=== PATIENT | male | born 1975 | race Caucasian/White ===

== ENCOUNTER 2017-10-30 21:12 | Observation (INO) | payer OTHER ==
[~2017-10-30] VITALS: Ht 185.4 cm; Wt 99.8 kg
[~2017-10-30 21:12] MED LIST: ADDERALL XR 3030 MG PO; CARISOPRODOL 3350 MG PO; CIPROFLOXACIN500 M1 PO; FLAGYL500 MG PO; KEFLEX500 MG PO; XANAX1 MG PO
[2017-10-30 21:30] VITALS: BP 112/64
[2017-10-30 22:09] LABS: HEMATOCRIT 42.7 % (42.0-52.0); HEMOGLOBIN 14.5 gm/dL (14.0-18.0); MCH 32.2 pg (26.0-34.0); MCHC 34.1 g/dL (28.0-37.0); MCV 94.6 fL (80.0-100.0); MPV 7.6 fl. (7.2-11.1); NUCLEATED RBCS 0 /100WBC; PLATELET COUNT* 329 thou/uL (150-400); RBC 4.51 mil/uL (4.50-6.00); RDW-CV 12.7 % (10.5-14.5); WBC 11.6 thou/uL (4.0-11.0)
[2017-10-30 22:13] LABS: CALCIUM 8.8 mg/dL (8.5-10.1); POTASSIUM 3.6 mmol/L (3.5-5.1)
[2017-10-30 22:16] LABS: URINE BILIRUBIN NEGATIVE (Negative); URINE BLOOD NEGATIVE (Negative); URINE CLARITY CLEAR; URINE COLOR YELLOW; URINE GLUCOSE-RANDOM NEGATIVE (Negative); URINE KETONES NEGATIVE (Negative); URINE LEUKOCYTES-REFLEX NEGATIVE (Negative); URINE NITRITE-REFLEX NEGATIVE (Negative); URINE PROTEIN NEGATIVE (Negative); URINE UROBILINOGEN 0.2 E.U./dl (0.2-1.0)
[2017-10-30 22:18] LABS: ALBUMIN 3.7 g/dL (3.4-5.0); TOTAL BILIRUBIN 0.5 mg/dL (<0.1-1.0)
[2017-10-30 22:56] LABS: ABSOLUTE LYMPHOCYTES 4.2 thou/uL (0.8-5.3); ABSOLUTE MONOCYTES 1.2 thou/uL (0.0-1.2); ABSOLUTE NEUTROPHILS 5.9 thou/uL (1.6-8.1); LYMPHOCYTES 35.8 %
[2017-10-30 22:57] LABS: ABSOLUTE EOSINOPHILS 0.3 thou/uL (0.0-0.7); EOSINOPHILS 2.4 %
[2017-10-31] VITALS (7 sets, daily range): BP systolic 100–122; BP diastolic 54–89
[2017-10-31 05:06] LABS: HEMOGLOBIN 13.9 gm/dL (14.0-18.0); MCH 32.5 pg (26.0-34.0); MCHC 34.7 g/dL (28.0-37.0); MCV 93.6 fL (80.0-100.0); MPV 7.8 fl. (7.2-11.1); RBC 4.28 mil/uL (4.50-6.00); RDW-CV 12.8 % (10.5-14.5)
[2017-10-31 06:27] LABS: ALBUMIN 3.5 g/dL (3.4-5.0); CALCIUM 8.7 mg/dL (8.5-10.1); CREATININE 0.8 mg/dL (0.6-1.3); POTASSIUM 3.8 mmol/L (3.5-5.1); TOTAL BILIRUBIN 0.5 mg/dL (<0.1-1.0); TOTAL PROTEIN 6.4 g/dL (6.4-8.2)
--- NOTE | 2017-10-31 07:43 | NUR ---
PATIENT RESTED IN BED, NO ACUTE CHANGES. PAITNET DID NOT SHOW SIGNS OF DISTRESS. PATIENT TO RECIEVE SURGERY, PATIENT COMPLETED PRE OP ANTIBIOTICS. CONSENT SIGNED.
--- NOTE | 2017-10-31 12:03 | NUR ---
ASSUMED CARE OF PT AT 0730. PT IN SURGERY APPENDECTOMY AT THIS TIME. PT BACK FROM SURGERY AT APPROXIMATELY 1000. VSS. PT DENIES ANY PAIN AT THAT TIME TREATED IN PACU FOR PAIN. LAP APPY SITES TO ABDOMEN C/D/I. PT ON RA SAT UPPER 90'S. DENIES ANY SHORTNESS OF BREATH. A&0X4. MED SURG STATUS. PT UP AD BERNARD. AT BEDSIDE. AM ASSESSMENT CHARTED. MEDICATIONS PER MAR. PROBABLE DISCHARGE THIS AFTERNOON AFTER ADVANCING DIET TOLERATED, PAIN MGMT AND INCREASING ACTIVITY TOLERATED. PT REPOSITIONS SELF. HOURLY ROUNDING OBSERVED. BED IN LOW POSITION. CALL LIGHT WITHIN REACH. WILL CONTINUE PLAN OF CARE.
[2017-10-31] MEDS ORDERED: HYDROCODONE-AP1 EAC6 PO (14:19)
--- NOTE | 2017-10-31 18:42 | NUR ---
PT COMPLAINED OF CHEST PAIN THIS AFTERNOON, RIGHT UPPER CHEST. EKG OBTAINED TRACING SB. PARTIALLY RELIEVED WITH MORPHINE IVP. SURGERY NOTIFIED. ORDERS RECEIVED TO HOLD OFF ON DISCHARGE AT THIS TIME. PT STATES HE WOULD FEEL BETTER STAYING AT HOSPITAL OVER NIGHT WITH SUCH DISCOMFORT TO RIGHT CHEST AND THROAT. PT EDUCATED ON NEED FOR AMBULATION TO HELP REMOVE EXTRA GAS POST SURGERY. PT CONTINUES TO COMPLAIN OF ABDOMINAL PAIN AND CHEST PAIN-TREATED WITH PRN MORPHINE IVP. REFER TO EMAR. REMAINED AT BEDSIDE THROUGHOUT SHIFT. PT ON RA SAT UPPER 90'S. DENIES ANY SHORTNESS OF BREATH. PT UP AD BERNARD IN ROOM. MEDICATIONS PER MAR. PROBABLE DISCHARGE IN AM. PT REPOSITIONS SELF. HOURLY ROUNDING OBSERVED. BED IN LOW POSITION. CALL LIGHT WITHIN REACH. WILL CONTINUE PLAN OF CARE.
[2017-11-01] VITALS: BP 132/70
--- NOTE | 2017-11-01 00:06 | NUR ---
DOCTOR FAWN JUNIOR NOTIFIED OF PATIENT LAST BM, SEE ORDERS. DOCTOR NOTIFED OF PATIENT COMPLAINT OF CHEST PAIN, THAT DECREASED WITH NORCO, NO NEW ORDERS REGARDING TO CHEST PAIN.
--- NOTE | 2017-11-01 07:33 | NUR ---
PATIENT RESTED IN BED, NO ACUTE CHANGES. PATIENT DID NOT SHOW SIGNS OF DISTRESS.
[2017-11-01 08:00] VITALS: BP 145/89
--- NOTE | 2017-11-01 09:13 | OP ---
[address] [address] OPERATIVE REPORT Name: JOSIAS KELLEY Room: [address] IN M.R.#: [id number] Admission: 10/31/17 Attend Phys: Eloisa Mcmillan DO Discharge: Date of : 79 Report #: [id number] THIS REPORT FOR: //name// CC: Eloisa Obando MD DICTATED BY: Tom Meier DO DATE OF SERVICE: 10/31/2017 PREOPERATIVE DIAGNOSIS: Appendicitis. POSTOPERATIVE DIAGNOSIS: Appendicitis. SURGEON: Eloisa Mcmillan DO. HAND BUTTON SPLITTER: Tom Meier, PGY-2. OPERATION: Laparoscopic appendectomy. ANESTHESIA: General endotracheal and local. ESTIMATED BLOOD LOSS: 5 mL. SPECIMEN REMOVED: Appendix. COMPLICATIONS: None. DISPOSITION: PACU to floor with plan for discharge home later today. CONDITION: Stable. INDICATIONS: The patient is a 42-year-old male that presented to the Emergency Room with 1-2 days of cramping right lower quadrant pain, nausea and vomiting. He had been recently followed by his primary care physician for an elevated leukocytosis over the last 3-4 months and some associated fatigue. The patient overnight had worsening sharp right lower quadrant pain, which prompted his presentation to the Emergency Department. CT scan showed a dilated fluid filled and thickened appendix and a mild leukocytosis. He was consented for a laparoscopic with possible open appendectomy and brought to the operating room. DESCRIPTION OF PROCEDURE: After informed consent was obtained, with risks including but not limited to bleeding, infection and damage to surrounding structures, the patient was brought to the operating room and placed in a supine position. General anesthesia was administered, and he was intubated without [address] [address] OPERATIVE REPORT Name: ALLIEJOSIAS Martha Room: [address] IN [facility].#: [id number] Admission: 10/31/17 Attend Phys: Eloisa Mcmillan DO Discharge: Date of : 79 Report #: [id number] difficulty. The patient was then prepped and draped in the usual sterile fashion. SCDs were placed prior to induction of anesthesia. Patient was on perioperative antibiotics. A surgical pause was held to confirm proper patient and procedure. .5% marcaine was used to anesthetize the planned incision sites. A #11 blade was used to create a horizontal incision, with the infraumbilical skin elevated using a pair of Adson's. Dissection was carried down to the fascia using a Reba clamp. Fascia was identified and elevated with two Kochers and entered using electrocautery. The peritoneum was entered bluntly. A finger sweep was used to ensure no adhesions under our entry point. 0 Vicryl was then used to secure both sides of the fascia to the Sarina port, which was introduced under direct visualization. The abdomen was then insufflated. An additional 5 mm port was placed in the left lower quadrant and another placed in the suprapubic midline under direct visualization. A brief exploration of the abdomen was then undertaken. The patient was positioned left side down and head down to aid in identification of the appendix. Several loops of small bowel were brought out of the right lower quadrant, and the appendix was noted to be injected and inflamed with no surrounding purulent material. The tip of the appendix was adherent to the pericolic gutter and was elevated. Bovie electrocautery was used to take down the adhesions to free the tip of the appendix. A window was created at the base of the appendix using a [place] dissector. A 45 mm blue load stapler was then fired across the base of the appendix. An additional white load 45 mm staple was deployed across the mesoappendix. The appendix was then placed in an EndoCatch bag. The staple lines were inspected, and a small area at the inferior aspect of the mesoappendix was noted to be actively bleeding which was controlled with cautery. The suction nursing education specialist was used to irrigate and inspect for any further bleeding, which was not noted. The abdomen was briefly desufflated to see if the drop in pressure allowed for any increase in bleeding, which was not noted. All ports were removed under direct visualization without any bleeding noted. The appendix was removed through the umbilical port. The previous fascial stitches were elevated and replaced with Bang clamps. A single [id number] using 0 Vicryl on a UR-6 was used to close the fascia. All skin was closed using 4-0 Monocryl. Wounds were cleansed and dressed with Mastisol, Steri-Strips, 4 x 4's and Tegaderms. The patient was emerged from anesthesia and transferred to the PACU in stable condition. He tolerated the procedure well without complication. PRIMARY CARE PHYSICIAN: Krissy Obando MD. <ELECTRONICALLY SIGNED> By: Eloisa Mcmillan DO 11/01/17 0913 0853 [id number] Mcmillan DO /nt
--- NOTE | 2017-11-01 10:46 | NUR ---
ASSUMED PT CARE AT 0730, FULL ASSESMENT DONE CHARTED. PT A/O X4, C/O ABD PAIN AT 12/19. PT GIVEN MORPHINE, STATES ROSALIECO HAS BEEN MAKING HIM FEEL "SICK", OBTAINED ORDER FOR TRAMADOL. DISCHARGE ORDERS RECIEVED, PT STATES HIS CAN COME GET HIM THIS AFTERNOON. WILL CONTINUE TO MONITOR UNTIL DISCHARGE
[2017-11-01] MEDS ORDERED: ULTRAM 50MG TAB50 MG PO (12:32)
--- NOTE | 2017-11-01 14:35 | NUR ---
Nutrition: Pt seen for nursing risk 2 points. Admitted with appendicitis. He will go up to M/S today. He had untouched lunch tray in room at time of visit. He stated poor appetite R/T nausea 2/2 pain RX. He does not feel like he has lost any wt recently. Regular diet is ordered. He stated he is only drinking juice right now. Offered him Boost products, to whic he agreed to try Tabitha - RD ordered. Consider low risk. Hopeful for beeter po intake in a timely manner. GOALS: po intake increase to >75% of meals, Boost+ tabitha daily, no significant wt loss.
--- NOTE | 2017-11-01 15:59 | EKG ---
[place] [address] ELECTROCARDIOGRAM REPORT Name: JOSIAS KELLEY Room: [address] M.R.#: [id number] Admission: 10/31/17 Attend Phys: Elosia Mcmillan DO Discharge: Date of : 79 Report #: [id number] THIS REPORT FOR: //name// [facility] Test Date: 2017-10-31 Test Time: 16:40:20 Pat Name: JOSIAS KELLEY Department: Room: [address] Gender: M Continuity Person: LEONEL : 1975 Requested By: Eloisa Mcmillan Order Number: [id number] Reading MD: Ken Lim Measurements Intervals [place] Rate: 59 P: 39 NE: 167 QRS: 31 QRSD: 121 T: 36 QT: 423 QTc: 419 Interpretive Statements Sinus rhythm Nonspecific intraventricular conduction delay Compared to ECG 04/24/2017 16:10:43 Intraventricular conduction delay now present Incomplete right bundle-branch block no longer present Electronically Signed On 11-01-2017 15:59:12 CDT by Ken Lim [email or web address] <ELECTRONICALLY SIGNED> By: Ken Lim MD, FACC 11/01/17 1559 1640 1640 Ken Lim MD, [facility] /EPI
--- NOTE | 2017-11-01 18:30 | NUR ---
DISCHARGE ORDERS OBTAINED, REVIEWED WITH PT, HE VERBALIZED UNDERSTANDING. PT LEFT UNIT WITH AT APPROX 1815
== END 2017-11-01 18:32 | disposition home or self-care (01) ==
LOC: M.ERS 21:12 → M.2W 10-31 00:18 → M.TBA-ER 10-31 00:18 → M.2W 10-31 01:19
PROVIDERS: Emergency Medicine; ADMIT Surgery
DX: K35.80 Unspecified acute appendicitis (principal); R10.11 Right upper quadrant pain; D72.829 Elevated white blood cell count, unspecified; R11.2 Nausea with vomiting, unspecified; F90.9 Attention-deficit hyperactivity disorder, unspecified type; F41.9 Anxiety disorder, unspecified; F17.200 Nicotine dependence, unspecified, uncomplicated; Z98.890 Other specified postprocedural states

== ENCOUNTER → 2017-11-25 | Outpatient (CLI) | payer OTHER ==
[~2017-11-25] MED LIST changes: +HYDROCODONE-AP1 EAC6 PO; +ULTRAM 50MG TAB50 MG PO
[2017-11-25 15:49] LABS: HEMOGLOBIN 15.1 gm/dL (14.0-18.0); MCHC 34.4 g/dL (28.0-37.0); MCV 93.3 fL (80.0-100.0); MPV 7.5 fl. (7.2-11.1); RBC 4.71 mil/uL (4.50-6.00); RDW-CV 12.6 % (10.5-14.5); WBC 13.7 thou/uL (4.0-11.0)
[2017-11-25 16:02] LABS: ALBUMIN 4.3 g/dL (3.4-5.0); CALCIUM 9.1 mg/dL (8.5-10.1); POTASSIUM 3.7 mmol/L (3.5-5.1); TOTAL BILIRUBIN 0.4 mg/dL (<0.1-1.0); TOTAL PROTEIN 8.3 g/dL (6.4-8.2)
== END ==
LOC: M.CT 15:00 → M.LAB 15:23 → M.CT 15:23
PROVIDERS: Family Medicine
DX: N20.0 Calculus of kidney (principal); R50.82 Postprocedural fever; R10.31 Right lower quadrant pain; R11.0 Nausea

== ENCOUNTER → 2018-01-17 | Outpatient (CLI) | payer OTHER | LOC: M.NUC 11:37 | DX: K31.84 Gastroparesis (principal) ==

== ENCOUNTER → 2018-02-17 | Outpatient (CLI) | payer OTHER ==
[2018-02-17 19:13] LABS: T7 1.8 (1.2-4.9)
== END ==
LOC: M.LAB 10:41
PROVIDERS: Nurse Practitioner Adult Health
DX: K59.00 Constipation, unspecified (principal); R14.0 Abdominal distension (gaseous)

== ENCOUNTER → 2019-04-05 | Outpatient (CLI) | payer OTHER ==
[2019-04-05 12:28] LABS: ABSOLUTE BASOPHILS 0.1 thou/uL (0.0-0.2); ABSOLUTE EOSINOPHILS 0.1 thou/uL (0.0-0.7); ABSOLUTE MONOCYTES 1.2 thou/uL (0.0-1.2); ABSOLUTE NEUTROPHILS 13.6 thou/uL (1.6-8.1); BASOPHILS 0.7 %; EOSINOPHILS 0.4 %; HEMATOCRIT 50.8 % (42.0-52.0); HEMOGLOBIN 17.6 gm/dL (14.0-18.0); LYMPHOCYTES 16.6 %; MCH 32.6 pg (26.0-34.0); MCHC 34.7 g/dL (28.0-37.0); MONOCYTES 6.4 %; MPV 7.1 fl. (7.2-11.1); NUCLEATED RBCS 0 /100WBC; PLATELET COUNT* 451 thou/uL (150-400); POLYS 75.9 %; RDW-CV 12.6 % (10.5-14.5); WBC 17.9 thou/uL (4.0-11.0)
[2019-04-05 12:42] LABS: ALBUMIN 4.5 g/dL (3.4-5.0); CALCIUM 9.6 mg/dL (8.5-10.1); CREATININE 1.3 mg/dL (0.6-1.3); POTASSIUM 4.1 mmol/L (3.5-5.1); TOTAL BILIRUBIN 0.6 mg/dL (<0.1-1.0); TOTAL PROTEIN 9.4 g/dL (6.4-8.2)
== END ==
LOC: M.CT 12:06
PROVIDERS: Family Medicine
DX: N20.0 Calculus of kidney (principal); R11.2 Nausea with vomiting, unspecified; R19.7 Diarrhea, unspecified; R50.9 Fever, unspecified; Z90.49 Acquired absence of other specified parts of digestive tract; Z79.899 Other long term (current) drug therapy

== ENCOUNTER → 2019-05-26 | Outpatient (CLI) | payer OTHER | LOC: M.RAD 09:48 | DX: R06.02 Shortness of breath (principal); R07.89 Other chest pain; Z87.891 Personal history of nicotine dependence ==